=== PATIENT | male | born 1970 | race Caucasian/White ===

== ENCOUNTER → 2020-11-18 | Day surgery (SDC) | payer OTHER ==
[~2020-11-18] VITALS: Ht 193 cm; Wt 118.9 kg
[~2020-11-18] MED LIST: ABILIFY5 MG PO; ALFUZOSIN HCL E10 MG PO; ANTI-DIARRHEAL2 MG PO; ARICEPT 5MG TABL5 MG PO; ARICEPT10 MG PO; ASPIRIN81 MG PO; BACLOFEN PUMP IV; COUMADIN6 MG PO; LOPRESSOR25 MG PO; LOVENOX150 MG/1 M SC; LOVENOX40 MG/0.4 SC; MELATONIN5 M2 PO; NORVASC5 MG PO; OMEPRAZOLE40 MG PO; PERCOCET 5-3251 EACH PO; PHAZYME250 MG PO; PROSCAR5 MG PO; PYRIDIUM100 MG PO; TRAZODONE 100M100 MG PO; VIAGRA100 MG PO; VITAMIN D22000 UNIT PO; ZOLOFT50 MG PO
[2020-11-18 11:26] LABS: HGB 16.6 g/dl (13.2-18.0); MCH 29.7 pg (25.0-31.0); MCHC 33.9 g/dL (32.0-36.0); MCV 87.8 fL (78.0-100.0); MONOCYTE 7.2 % (0-12); MPV 10.7 fL (6.0-9.5); NEUTROPHIL 53.5 % (41-80); NRBC 0; PLT 171 K/uL (150-400); RBC 5.58 M/uL (4.70-6.00); RDW 14.5 % (11.5-14.0); WBC 7.3 K/uL (4.0-10.5)
[2020-11-18 11:34] LABS: INR 1.53 (0.9-1.2); PROTHROMBIN TIME 17.7 SECONDS (11.8-13.4)
[2020-11-18 11:49] LABS: CREATININE 1.33 mg/dL (0.67-1.17)
== END | disposition home or self-care (01) ==
LOC: FAS 10:03
PROVIDERS: Anesthesiology
DX: M19.011 Primary osteoarthritis, right shoulder (principal); S46.011A Strain of muscle(s) and tendon(s) of the rotator cuff of right shoulder, initial encounter; M75.41 Impingement syndrome of right shoulder; G89.18 Other acute postprocedural pain; I10 Essential (primary) hypertension; G40.909 Epilepsy, unspecified, not intractable, without status epilepticus; F17.200 Nicotine dependence, unspecified, uncomplicated; Z86.73 Personal history of transient ischemic attack (TIA), and cerebral infarction without residual deficits; Z88.5 Allergy status to narcotic agent; Z88.0 Allergy status to penicillin; Z88.8 Allergy status to other drugs, medicaments and biological substances; Z79.82 Long term (current) use of aspirin; Z79.01 Long term (current) use of anticoagulants; Z79.899 Other long term (current) drug therapy; W19.XXXA Unspecified fall, initial encounter
CPT/HCPCS: 36415; 80048; 85025; 85610; 93005; C1713; J0171; J1100; J1170; J2250; J2405; J2704; J2710; J2795; J3010; J7120